=== PATIENT | female | born 1990 | race Caucasian/White ===

== ENCOUNTER 2023-06-19 18:44 | Emergency (ER) | payer OTHER, SELFPAY ==
[2023-06-19 18:50] VITALS: BP 127/67
[2023-06-19 19:05] LABS: % Basophils 0.5 % (0-2); % Eosinophils 3.1 % (0-6); % Immature Granulocytes 0.3 % (0-0.5); % Lymphocytes 36.6 % (20.5-51.1); % Neutrophils 51.5 % (42.2-75.2); Absolute Basophils 0.1 10^3/uL (0-0.2); Absolute Eosinophils 0.3 10^3/uL (0-0.7); Absolute Lymphocytes 3.7 10^3/uL (1.2-3.4); Absolute Monocytes 0.8 10^3/uL (0.1-0.6); Absolute Neutrophils 5.2 10^3/uL (1.4-6.5); Hemoglobin 12.9 g/dL (12.0-16.0); Mean Corp Hgb Conc. 34.9 g/dL (33.0-37.0); Mean Corpuscular Hgb 30.5 pg (27.0-31.0); Mean Corpuscular Volume 87.5 fL (81.0-99.0); Mean Platelet Volume 10.2 fL (7.4-10.4); Nucleated Red Blood Cells % 0 %; Platelet Count 361 10^3/uL (130-400); Red Blood Cell Count 4.23 10^6/uL (4.20-5.40); Red Cell Dist. Width 12.5 % (11.5-14.5)
[2023-06-19 19:21] LABS: HCG, Serum Qualitative Screen Negative
[2023-06-19 19:25] LABS: ALT (SGPT) 25 U/L (0-35); AST (SGOT) 27 U/L (14-36); Albumin 4.4 g/dl (3.5-5.0); Alkaline Phosphatase 86 U/L (38-126); Blood Urea Nitrogen 18 mg/dl (7-17); Calcium 9.6 mg/dl (8.4-10.2); Carbon Dioxide 22 mmol/L (22-30); Chloride 108 mmol/L (98-107); Glucose 94 mg/dl (70-99); Lipase 124 U/L (23-300); Potassium 4.3 mmol/L (3.5-5.1); Sodium 139 mmol/L (135-145); Total Bilirubin 0.3 mg/dl (0.2-1.3); Total Protein 7.4 g/dl (6.3-8.2); eGFR > 60.00
[2023-06-19 21:06] LABS: Urine Albumin Negative (Neg - Trace); Urine Bilirubin Negative (Negative); Urine Character Clear (Clear); Urine Color Yellow; Urine Glucose Negative (Negative); Urine Ketone Negative (Negative); Urine Leukocyte 1+ (Negative); Urine Nitrite Negative (Negative); Urine Occult Blood Negative (Negative); Urine Urobilinogen Negative (Neg - 1+)
[2023-06-19 21:14] LABS: Urine Red Blood Cell None Seen /HPF (0-2); Urine Squamous Cell >30 /LPF (Few)
--- NOTE | 2023-06-19 23:14 | ED.GENMED ---
History of Present Illness
General
Chief Complaint: Abdominal Pain
Source: patient, previous radiology exam (Unremarkable CT abdomen pelvis February 2017. Unremarkable abdominal ultrasound June 2018.) and previous hospital records (Previous ED visit February 2017 for somewhat similar right upper quadrant pain,
nausea complaint.)
Exam Limitations: none
Time Seen by Provider: 06/19/23 22:54
Nursing documentation reviewed up to this point in time: agreed with
Travel History
Have you had any contact with someone who has COVID-19?: No
Do you have any symptoms of coronavirus? Fever > 100 degrees, chills, cough, shortness of breath, sore throat, loss of taste or smell, muscle aches, or headache?: No
History of Present Illness
History of Present Illness:
This is a 32-year-old woman who has no significant past medical history save for occasional migraine headaches, obesity. She complains of right upper quadrant pain that began yesterday just prior to going to bed. Right upper quadrant pain has
persisted today accompanied with nausea without vomiting. Right upper quadrant pain is worse with movement, especially with sitting up and with twisting of her trunk. No radiation of the pain, no flank pain, no fever no chills, no dysuria and
urgency and or hematuria. She did pass a normal bowel movement today without change in pain. She does not notice improvement nor worsening of pain with meals but admits to somewhat decreased oral intake today.
She denies insightful injury, no heavy lifting, no falls and denies history of similar episodes of pain however upon review of records patient was evaluated in this ED with somewhat very similar right upper quadrant pain that was worse with movement
February 2017. At that time unremarkable laboratory studies. Unremarkable CT of the abdomen pelvis and abdominal ultrasound showed mild focal adenopathy at the rosa hepatis. Follow-up ultrasound June 2018 was unremarkable.
She denies risk of has IUD in place.
She did take 1 Advil as well as 1 aspirin this afternoon, unsure if this was helpful for her pain but admits that she was feeling somewhat improved earlier this afternoon but pain persisted this evening prompting a visit to urgent care and was then
referred to the ED for further evaluation.
Her only daily medication is Wellbutrin, she was recently started on phentermine
Past History
Past History
ED Past Medical History: Other (UTIs, migraine headaches); Negative Asthma, HTN, Hypercholesterolemia or NIDDM
ED Past Surgical History: Orthopedic
Social History
Tobacco: Smoker
Alcohol: Occasional
Drug: None
Personal: Single
Living: with family
Employment: Employed
Family History
Family History: Other (Noncontributory)
Phy Exam
Physical Exam
Physical Exam:
GENERAL: 32-year-old female appears her stated age, bright and alert, pleasant, appears in no acute distress.
EYE: anicteric
NECK: Supple, nontender, no meningismus, no significant adenopathy.
ENT: oral mucosa is moist. No rhinorrhea.
CARDIAC: Regular rate and rhythm. no murmur.
LUNGS: Clear breath sounds bilaterally, no acute respiratory distress, no wheezes/rales/rhonchi
ABDOMEN: Rotund, soft, nondistended, mild tenderness with deep palpation of the right upper quadrant without rebound or guarding or rigidity. No palpable masses nor organomegaly. no cvat. normoactive BS.
NEUROLOGICAL: Alert and oriented x3, no focal neuro deficits. Gait is steady.
SKIN: Warm and dry, normal color, skin intact. No rash.
MUSCULOSKELETAL: No C/C/E. peripheral pulses are full and equal b/l. No palpable tenderness.
PSYCH: Normal and appropriate interaction.
Course
Orders/Labs/Results
Orders:
Orders
06/19/23 18:54
Test Result ONCE
06/19/23 19:00
Complete Blood Count/With Diff Urgent
Comprehensive Metabolic Panel Urgent
HCG, Serum Qualitative Screen Urgent
Lipase Urgent
06/19/23 20:57
Urinalysis Reflex To Culture Urgent
Date Specimen was Collected: 06/19/23
Time Specimen was Collected: 18:53
Urine Microscopic Reflex Cult Urgent
Urine Culture Urgent
TESSIE Source: U
Specimen Description:
Date Specimen was Collected: 06/19/23
Time Specimen was Collected: 18:53
06/20/23 00:00
US Abdomen Complete/Upper Urgent
Reason For Exam: RUQ pain x 24 hours, nausea
Abnormal Lab Results
06/19/23 06/19/23
19:00 20:57
Absolute Lymphs (auto) 3.7 H 10^3/uL
(1.2-3.4)
Absolute Monos (auto) 0.8 H 10^3/uL
(0.1-0.6)
Chloride 108 H mmol/L
(98-107)
BUN 18 H mg/dl
(7-17)
Leukocyte Esterase Rfl 1+ A
(Negative)
06/19/23 19:00
06/19/23 19:00
Vital Signs
Initial and Last Documented VS:
Initial Vital Signs
Temp Pulse Resp BP Pulse Ox
98.0 F 74 16 127/67 98
06/19/23 18:50 06/19/23 18:50 06/19/23 18:50 06/19/23 18:50 06/19/23 18:50
Last Documented Vital Signs
Temp Pulse Resp BP Pulse Ox
98.0 F 74 16 127/67 98
06/19/23 18:50 06/19/23 18:50 06/19/23 18:50 06/19/23 18:50 06/19/23 18:50
MDM/Problems Addressed
Differential Diagnosis Includes:
Concern for acute biliary colic/cholecystitis, gastroduodenitis, abdominal wall muscle strain.
No prior abdominal surgeries, no vomiting and overall nontoxic in appearance, small bowel obstruction is unlikely.
There is no lower abdominal tenderness and no complaints of lower abdomen nor pelvic pain thus [employer] etiology is unlikely as well.
Labs are unremarkable, within normal limits. Urinalysis is unremarkable, no evidence of UTI. Negative for blood and without complaints of flank pain and no CVA tenderness, renal/ureteric etiology is unlikely as well.
Will check abdominal ultrasound.
*Radiology
Radiology exam reviewed: radiology read reviewed (Abdominal ultrasound is unremarkable)
*Pulse Oximetry
Patient hypoxic: no
*Critical Care Note
Total Time (30-74mins, 75-104mins- exclusive of procedures): Not Applicable
Update Note
Update Note:
06/20/2023 0120 AM
Abdominal ultrasound is unremarkable.
With reassuring labs, unremarkable ultrasound and right upper quadrant pain that is worse with movement, sitting up, bending forward, this could certainly be abdominal wall muscular pain in nature.
Overall continues to appear well.
Recommend a course of ibuprofen for as needed pain.
Prompt follow-up with PCP for recheck.
Return precautions discussed.
ED Attending Note
-
Portions of this chart may have been created with voice recognition software.� Occasional wrong word or��sound alike� substitutions may have occurred due to the inherent limitations of voice recognition software.
Discharge Plan
Departure
Patient Disposition: Home (Routine Discharge)
Date of Disposition: 06/20/23
Time of Disposition: 01:23
Patient with high blood pressure during this ER visit?: No
Condition: Good
Discharge Problem:
Acute abdominal pain in right upper quadrant
Instructions: Abdominal Pain
Prescriptions:
New
ibuprofen 600 mg tablet
600 mg PO QID PRN (Reason: fever or pain) Qty: 20 0RF
No Action
docosahexaenoic acid-epa 1 CAP capsule
1 cap PO DAILY
Lactobacillus acidophilus [Probiotic] 1 EACH capsule
1 ea PO DAILY
Dim-Plus
1 tab PO DAILY
levofloxacin 500 MG tablet
500 mg PO DAILY 7 Days 0RF
phenazopyridine [Pyridium] 200 MG tablet
200 mg PO TIDPRN PRN (Reason: bladder spasm and pain) Qty: 6 0RF
ondansetron 4 MG tablet,disintegrating
4 mg PO Q8HPRN PRN (Reason: Nausea/Vomiting) Qty: 10 0RF
cyclobenzaprine 5 mg tablet
5 mg PO TID PRN (Reason: muscle spasm) Qty: 10 0RF
methylprednisolone [Methylpred DP] 4 mg tablets,dose pack
See Rx Instructions .ROUTE .COMPLEX Qty: 21 0RF
Rx Instructions:
orally per package directions
lidocaine [Lidoderm] 5 % adhesive patch,medicated
1 patch topical DAILY Qty: 30 0RF
Referrals:
Vicente Potter, DO [Family Provider] - Call in 1-3 days for appt
Interventions
Interventions:
*Risk Screen - Suicide Last Done: 06/19/23 23:08
*General Assessment Last Done: 06/19/23 23:23
*Neglect/Abuse Screening Last Done: 06/19/23 23:08
ED- Fall Risk Assessment Last Done: 06/19/23 23:23
*ED COVID-19 Vaccine History Last Done: 06/19/23 18:50
PZ-Zozprr-[id number] Assessment Last Done: 06/19/23 23:23
Discharge Date and Time
Print Language: FAROESE
[2023-06-20 01:27] VITALS: BP 93/76
== END 2023-06-20 01:34 | disposition home or self-care (01) ==
LOC: EMR 18:44
PROVIDERS: Emergency Medicine; EMERGENCY PHYSICIAN Emergency Medicine; FAMILY PHYSICIAN Family Medicine
DX: R10.11 Right upper quadrant pain (principal); F17.200 Nicotine dependence, unspecified, uncomplicated
CPT/HCPCS: 99284; 76700; 80053; 81003; 81015; 83690; 84703; 85025; 87086

== ENCOUNTER → 2023-09-07 10:44 | Outpatient (REF) | payer OTHER, SELFPAY | LOC: PAVMRI 10:44 | PROVIDERS: ATTENDING PHYSICIAN Family Medicine | DX: R51.9 Headache, unspecified (principal); R42 Dizziness and giddiness | CPT/HCPCS: 70546; 70553; A9585 ==